=== PATIENT | female | born 1960 | race Caucasian/White ===

== ENCOUNTER 2017-03-17 11:12 | Outpatient (CLI) | payer BC ==
[2017-03-17 13:43] LABS: #Basophils 0.1 thou/uL (0.0-0.2); #Eosinphils 0.2 thou/uL (0.0-0.7); #Lymphocytes 3.2 thou/uL (1.20-3.40); #Monocytes 0.5 thou/uL (0.11-0.59); #Neutrophils 4.8 thou/uL (1.40-6.50); %Basophils 0.6 % (0.0-1.0); %Eosinophils 2.1 % (0.0-10.0); %Lymphocytes 37.1 % (21.0-51.0); %Monocytes 5.5 % (0.0-10.0); Hematocrit 43.2 % (36.0-47.0); Mean Platelet Volume 8.5 fL (7.4-10.4); Red Blood Cell (RBC) Count 4.65 mill/uL (4.20-5.40); White Blood Cell (WBC) Count 8.7 thou/uL (4.8-10.8)
[2017-03-17 14:14] LABS: Anion Gap 13 mmol/L (10-20); BUN (Urea Nitrogen) 11 mg/dL (9.8-20.1); Calc. Creatinine Clearance 0 mL/min (70-130); Calcium 9.8 mg/dL (7.8-10.44); Carbon Dioxide 26 mmol/L (22-29); Chloride 103 mmol/L (98-107); Estimated GFR-MDRD 75
--- NOTE | 2017-04-02 13:27 | EKG ---
Test Reason : Blood Pressure : / mmHG Vent. Rate : 083 BPM Atrial Rate : 083 BPM P-R Int : 160 ms QRS Dur : 086 ms QT Int : 360 ms P-R-T Axes : 059 048 056 degrees QTc Int : 423 ms Normal sinus rhythm Normal ECG When compared with ECG of 19-JUN-2015 07:38, No significant change was found Confirmed by NAVNEET CAMPBELL MD ([id number]) on 04/02/2017 1:26:33 PM Referred By: SARAHY Confirmed By:NAVNEET CAMPBELL MD
== END 2017-03-17 11:13 | disposition home or self-care (01) ==
LOC: LABBT 11:12
PROVIDERS: ATTEND Orthopaedic Surgery
DX: Z01.818 Encounter for other preprocedural examination (principal); S83.242A Other tear of medial meniscus, current injury, left knee, initial encounter
CPT/HCPCS: 80048; 85025; 93005; 93010

== ENCOUNTER 2017-03-31 06:01 | Day surgery (SDC) | payer BC ==
[2017-03-17 11:31] VITALS: BMI 34.4
[2017-03-31] MEDS ORDERED: CEFAZOLIN/Water 2 GM/20 ML SYRINGE ONE (06:23)
[2017-03-31] MEDS ORDERED: PROPOFOL 20 ML ONE (06:39)
[2017-03-31] MEDS ORDERED: Fentanyl 100 MCG/2 ML VIAL ONE (07:08)
--- NOTE | 2017-03-31 11:15 | OP ---
DATE OF SERVICE: 03/31/2017 PREOPERATIVE DIAGNOSIS: Medial meniscus tear, left knee. POSTOPERATIVE DIAGNOSIS: Medial meniscus tear, left knee. 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 DESCRIPTION OF PROCEDURE: Scope was placed in the lateral portal and probe was placed in medial port al, the meniscus was debrided using basket forceps and smoothed using a 4-0 full radius resector. I probed the rim of the meniscus, confirmed it was stable. The knee was irrigated, removed any loose p ieces from the meniscectomy and sterile dressings applied. There were no complications.
[2017-03-31] MEDS ORDERED: PROPOFOL 200 MG/20 ML VIAL ONE (13:40)
== END 2017-03-31 10:00 | disposition home or self-care (01) ==
LOC: SDC 06:01
PROVIDERS: ATTEND Orthopaedic Surgery
PROC: 0SBD4ZZ Excision of Left Knee Joint, Percutaneous Endoscopic Approach (ICD-10-PCS; principal; 2017-03-31)
DX: S83.232A Complex tear of medial meniscus, current injury, left knee, initial encounter (principal); G47.30 Sleep apnea, unspecified; K21.9 Gastro-esophageal reflux disease without esophagitis; J32.9 Chronic sinusitis, unspecified; Z79.899 Other long term (current) drug therapy; Z88.5 Allergy status to narcotic agent; Z98.890 Other specified postprocedural states
CPT/HCPCS: G8978-GP-CI; G8979-GP-CI; G8980-GP-CI; J2704; J3010

== ENCOUNTER 2017-11-17 15:30 | Outpatient (CLI) | payer BC ==
--- NOTE | 2017-11-18 08:38 | MRI ---
MRI RIGHT KNEE WITHOUT CONTRAST: HISTORY: M23.91, internal derangement of right knee. COMPARISON: None. FINDINGS: Medial Meniscus: There is a high-grade radial ear of the posterior horn medial meniscus extending from the free edge t o the intermediate and red zone with a few peripheral fibers remaining. No significant gutter extrus ion. Mild degenerative signal within the posterior horn. Lateral Meniscus: There is radial tear with loss of volume of the lateral meniscal body free edge extending into the me dial 1/3 of the meniscal tissue. Intermediate and red zone are maintained. The ACL and PCL are intact. MCL and LCL are intact. Extensor Mechanism: Quadriceps tendon, patella, and patellar tendon are all intact. There is a dorsal defect of the patella on the lateral trochlea with overlying cartilage loss and sub chondral reactive marrow changes. Cartilage, Patellofemoral Compartment: At the dorsal defect of the patella lateral trochlea, there is a full-thickness cartilage fissuring a nd fraying. The remainder of the patellar cartilage is intact. There is high-grade chondral loss of the central trochlea with early subchondral reactive marrow edema and articular surface remodeling. Medial Compartment: There is some low-grade cartilage fraying on the posterior flexion zone. Lateral Compartment: Intact. Muscles: Muscle signal and bulk is normal. Some low-grade fatty atrophy of the semimembranosus muscle near th e myotendinous junction. Soft Tissues: Low-grade popliteal cysts. There is a small body within the semimembranosus bursa. IMPRESSION: 1. High-grade radial tear of the posterior horn medial meniscus from the free edge to the white and intermediate zone with a few peripheral red zone fibers remaining. No significant gutter extrusion. 2. Free edge tear of the lateral meniscal body with associated degenerative signal within the body o f the lateral meniscus. The free edge fraying and tear extends into the white zone and intermediate zones sparing the peripheral 1/3. 3. Dorsal defect of lateral patella with overlying complete cartilage loss. This dorsal defect maribeth ures 8 mm x 1.4 cm. 4. Small semimembranosus bursa effusion containing a 4 mm body. POS: [facility]
== END 2017-11-17 15:31 | disposition home or self-care (01) ==
LOC: MRI 15:30
PROVIDERS: ATTEND Orthopaedic Surgery
DX: M23.91 Unspecified internal derangement of right knee (principal); S83.241A Other tear of medial meniscus, current injury, right knee, initial encounter; S83.281A Other tear of lateral meniscus, current injury, right knee, initial encounter; M25.461 Effusion, right knee

== ENCOUNTER 2018-07-25 09:08 | Outpatient (CLI) | payer BC ==
--- NOTE | 2018-07-25 09:41 | RAD ---
Exam: Lumbar spine 4 views HISTORY: Lumbar radiculopathy, x6 months. COMPARISON: None FINDINGS: AP, lateral neutral, lateral flexion and lateral extension views were performed with the patient bear ing weight Mild rightward curvature lumbar spine. Lumbar spine vertebral body height is maintained. No fracture. No spondylolisthesis in the neutral position. No abnormal motion upon flexion or extension. There is multilevel degenerative change with loss of disc space height and osteophyte formation. Over all, there is mild degenerative change. IMPRESSION: 1. Mild rightward curvature lumbar spine. 2. Multilevel mild degenerative disc disease. 3. No spondylolisthesis or spondylolysis.
== END 2018-07-25 09:09 | disposition home or self-care (01) ==
LOC: BICRAD 09:08
PROVIDERS: ATTEND Neurological Surgery
DX: M51.16 Intervertebral disc disorders with radiculopathy, lumbar region (principal); M43.8X6 Other specified deforming dorsopathies, lumbar region
CPT/HCPCS: 72110

== ENCOUNTER 2018-08-29 10:11 | Day surgery (SDC) | payer BC ==
[2018-08-29] MEDS ORDERED: ePHEDrine 50 MG/ML VIAL ONE (11:44)
[2018-08-29] MEDS ORDERED: PROPOFOL 200 MG/20 ML VIAL ONE (11:44)
--- NOTE | 2018-08-29 13:05 | MRI ---
MRI cervical spine. HISTORY: Burning and aching both legs. Multiplanar multisequence noncontrast enhanced MRI images cervical spine obtained. 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 The spinal cord is unremarkable. C2-3: Unremarkable C3-4: Moderate right C3-4 neural foraminal narrowing seen due to uncovertebral osteophyte hypertrophy . The left neural foramen is patent. C4-5: There is a small central disc protrusion C5-6: Broad-based central disc protrusion is seen. Central canal and neural foramen are patent. C6-7: Disc desiccation seen. There is a left paracentral C6-7 disc protrusion compressing the thecal sac. The neural foramen are patent. C7-T1: Unremarkable IMPRESSION: broad-based central disc protrusions at multiple mid and lower cervical levels. Transcribed Date/Time: 08/29/2018 1:10 PM
== END 2018-08-29 13:40 | disposition home or self-care (01) ==
LOC: SDC/OP 10:11
PROVIDERS: ATTEND Neurological Surgery
DX: M50.221 Other cervical disc displacement at C4-C5 level (principal); Z88.5 Allergy status to narcotic agent; Z79.899 Other long term (current) drug therapy
CPT/HCPCS: 72141; J2704; J3490

== ENCOUNTER 2018-08-30 12:50 | Outpatient (CLI) | payer BC ==
--- NOTE | 2018-08-30 15:32 | ULT ---
BLADDER ULTRASOUND: INDICATIONS: Polyuria. FINDINGS: The pre-void bladder volume was 122.4 mL. No intraluminal mass is grossly evident. There are bilate ral ureteral jets seen. IMPRESSION: Normal evaluation. POS: [facility]
== END 2018-08-30 12:51 | disposition home or self-care (01) ==
LOC: BICULT 12:50
PROVIDERS: ATTEND Family Medicine
DX: R35.8 Other polyuria (principal)
CPT/HCPCS: 76856

== ENCOUNTER 2019-03-12 10:23 | Outpatient (CLI) | payer BC ==
[2019-03-12 11:53] LABS: #Eosinphils 0.2 thou/uL (0.0-0.7); #Lymphocytes 2.5 thou/uL (1.20-3.40); #Monocytes 0.6 thou/uL (0.11-0.59); #Neutrophils 5.1 thou/uL (1.40-6.50); %Eosinophils 1.8 % (0.0-10.0); %Lymphocytes 29.7 % (21.0-51.0); %Monocytes 6.6 % (0.0-10.0); %Neutrophils 61.8 % (42.0-75.0); Hemoglobin 14.6 g/dL (12.0-16.0); Mean Corpuscular HGB CONC 33.9 g/dL (32.0-36.0); Mean Corpuscular Volume 91.5 fL (78.0-98.0); Mean Platelet Volume 8.8 fL (7.4-10.4); Platelet Count 200 thou/uL (130-400); RBC Distribution Width 12.3 % (11.5-14.5); Red Blood Cell (RBC) Count 4.71 mill/uL (4.20-5.40); White Blood Cell (WBC) Count 8.3 thou/uL (4.8-10.8)
[2019-03-12 12:12] LABS: Anion Gap 13 mmol/L (10-20); BUN (Urea Nitrogen) 12 mg/dL (9.8-20.1); Calc. Creatinine Clearance 0 mL/min (70-130); Calcium 9.4 mg/dL (7.8-10.44); Carbon Dioxide 26 mmol/L (22-29); Chloride 102 mmol/L (98-107); Estimated GFR-MDRD 76; Glucose 80 mg/dL (70-105); Potassium 4.4 mmol/L (3.5-5.1); Sodium 137 mmol/L (136-145)
== END 2019-03-12 10:24 | disposition home or self-care (01) ==
LOC: LABBT 10:23
PROVIDERS: ATTEND Orthopaedic Surgery
DX: Z01.818 Encounter for other preprocedural examination (principal); S83.242A Other tear of medial meniscus, current injury, left knee, initial encounter; S83.282A Other tear of lateral meniscus, current injury, left knee, initial encounter
CPT/HCPCS: 80048; 85025; 93005; 93010

== ENCOUNTER 2019-03-16 07:02 | Day surgery (SDC) | payer BC ==
[2019-03-12 10:50] VITALS: BMI 35.2
[2019-03-16] MEDS ORDERED: PROPOFOL 20 ML ONE ×2 (08:30→10:30)
[2019-03-16] MEDS ORDERED: Fentanyl 100 MCG/2 ML VIAL ONE (09:52)
[2019-03-16] MEDS ORDERED: Ondansetron PF 4 MG/2 ML Vial ONE (10:27)
[2019-03-16] MEDS ORDERED: Bupivacaine HCl 0.5%/Epinephrine 1:200,000/PF 30 ml Vial ONE (12:43)
[2019-03-16] MEDS ORDERED: Dexamethasone 20 MG/5 ML VIAL ONE (12:43)
[2019-03-16] MEDS ORDERED: Lidocaine 2% w/Epinephrine 1:200K 20 ML VIAL ONE (12:43)
--- NOTE | 2019-03-16 12:51 | OP ---
DATE OF PROCEDURE: 03/16/2019 PREOPERATIVE DIAGNOSIS: Medial and lateral meniscus tear, left knee. POSTOPERATIVE DIAGNOSIS: Medial and lateral meniscus tear, left knee. PROCEDURE PERFORMED: Arthroscopic partial medial and lateral meniscectomy. ANESTHESIA: General. BLOOD LOSS: Minimal. SPECIMEN: None. DRAIN: None. COMPLICATION: None. DESCRIPTION OF PROCEDURE: The patient was taken to the operating room and general anesthesia was induced. Left leg was prepped and draped in sterile fashion. Scope was placed through the lateral portal. Probe was placed in the medial portal. She had surprisingly little arthritis in the knee and no exposed bony compartment. Her ACL appeared to be chronically partially torn. A small tear of the posterior medial meniscus was debrided using basket forceps and 4.0 full-radius resector. The majority of the posterior medial meniscus was torn. This was removed with basket forceps and smoothed using a resector as well. The knee was irrigated. I probed the remaining meniscus and found it to be stable. The knee was drained. Sterile dressings were applied. Job ID: [id number]
== END 2019-03-16 13:12 | disposition home or self-care (01) ==
LOC: SDC 07:02
PROVIDERS: ATTEND Orthopaedic Surgery
PROC: 0SBD4ZZ Excision of Left Knee Joint, Percutaneous Endoscopic Approach (ICD-10-PCS; principal; 2019-03-16)
DX: S83.242A Other tear of medial meniscus, current injury, left knee, initial encounter (principal); S83.512A Sprain of anterior cruciate ligament of left knee, initial encounter; M17.12 Unilateral primary osteoarthritis, left knee; G47.30 Sleep apnea, unspecified; K21.9 Gastro-esophageal reflux disease without esophagitis; F17.210 Nicotine dependence, cigarettes, uncomplicated; Z79.899 Other long term (current) drug therapy; Z88.5 Allergy status to narcotic agent; Z98.890 Other specified postprocedural states
CPT/HCPCS: J0670; J0690; J1100; J2405; J2704; J3010

== ENCOUNTER 2019-04-03 10:32 | Day surgery (SDC) | payer BC ==
[2019-03-29 09:28] VITALS: BMI 35.2
[2019-04-03] MEDS ORDERED: Ondansetron PF 4 MG/2 ML Vial ONE (10:39)
[2019-04-03] MEDS ORDERED: PROPOFOL 200 MG/20 ML VIAL ONE (10:39)
[2019-04-03] MEDS ORDERED: Lidocaine 1% PF 5 ML VIAL ONE (10:39)
[2019-04-03] MEDS ORDERED: Bupivacaine HCl 0.5%/Epinephrine 1:200,000/PF 30 ml Vial ONE (10:43)
[2019-04-03] MEDS ORDERED: Lidocaine 2% w/Epinephrine 1:200K 20 ML VIAL ONE (10:43)
[2019-04-03] MEDS ORDERED: PROPOFOL 20 ML ONE (12:05)
[2019-04-03] MEDS ORDERED: Fentanyl 100 MCG/2 ML VIAL ONE (13:36)
[2019-04-03] MEDS ORDERED: HYDROcodone/Acetaminophen 5/325 mg Tablet ONE (15:15)
--- NOTE | 2019-04-03 15:32 | OP ---
DATE OF PROCEDURE: 04/03/2019 TITLE OF PROCEDURE: Right knee arthroscopic partial medial and lateral meniscectomy. ANESTHESIA: General. BLOOD LOSS: Minimal. SPECIMENS: None. DRAINS: None. COMPLICATION: None. FINDINGS AT SURGERY: Medial meniscus tear, lateral meniscus tear, ACL intact. Cartilage in all three compartments. DESCRIPTION OF PROCEDURE: The scope was placed in the lateral portal, probe was placed in the medial portal. The medial meniscus was then probed, found to have a tear. This was debrided using basket forceps, smoothed using a full-radius resector all the way around the probing, confirmed the meniscus stable. Notch was examined. ACL was intact. Lateral compartment was examined. There was found to be a tear in the central portion of the lateral meniscus. This was debrided using basket forceps, smoothed using a 4-0 full-radius resector. The gutters were swept. Suprapatellar pouch was examined for loose bodies, there were none. The knee was irrigated and drained. Sterile dressings applied. Job ID: [id number]
== END 2019-04-03 15:45 | disposition home or self-care (01) ==
LOC: SDC 10:32
PROVIDERS: ATTEND Orthopaedic Surgery
PROC: 0SBC4ZZ Excision of Right Knee Joint, Percutaneous Endoscopic Approach (ICD-10-PCS; principal; 2019-04-03)
DX: S83.241A Other tear of medial meniscus, current injury, right knee, initial encounter (principal); S83.281A Other tear of lateral meniscus, current injury, right knee, initial encounter; F17.210 Nicotine dependence, cigarettes, uncomplicated; Z88.5 Allergy status to narcotic agent
CPT/HCPCS: J0690; J2704; J3010

== ENCOUNTER 2020-04-28 11:01 | Outpatient (CLI) | payer BC ==
[2020-04-28 22:24] LABS: SARS-CoV-2 PCR by NAA Not Detected (NotDetected)
== END 2020-04-28 11:02 | disposition home or self-care (01) ==
LOC: LABBT 11:01
PROVIDERS: ATTEND Family Medicine
DX: Z01.812 Encounter for preprocedural laboratory examination (principal); Z20.822 Contact with and (suspected) exposure to COVID-19
CPT/HCPCS: 87635; U0003; U0005

== ENCOUNTER 2020-05-02 10:00 | Day surgery (SDC) | payer BC ==
[2020-05-01 09:29] VITALS: BMI 37.3
[~2020-05-02 10:00] MED LIST: Dexamethasone 20 MG/5 ML VIAL ONE; Ondansetron PF 4 MG/2 ML Vial ONE; PROPOFOL 200 MG/20 ML VIAL ONE
[2020-05-02] MEDS ORDERED: Fentanyl 100 MCG/2 ML VIAL ONE (11:38)
[2020-05-02] MEDS ORDERED: Midazolam HCl 2 mg/2 ml Vial ONE (11:38)
== END 2020-05-02 14:18 | disposition home or self-care (01) ==
LOC: SDC/OP 10:00
PROVIDERS: ATTEND Family Medicine
DX: M48.062 Spinal stenosis, lumbar region with neurogenic claudication (principal); M51.26 Other intervertebral disc displacement, lumbar region; F17.210 Nicotine dependence, cigarettes, uncomplicated; K21.9 Gastro-esophageal reflux disease without esophagitis; G47.30 Sleep apnea, unspecified; Z79.899 Other long term (current) drug therapy; Z88.5 Allergy status to narcotic agent
CPT/HCPCS: 72148; J1100; J2250; J2405; J2704; J3010

== ENCOUNTER 2021-04-28 15:15 | Outpatient (CLI) | payer BC, MEDICARE | END 2021-04-28 15:16 | disposition home or self-care (01) | LOC: BICCT 15:15 | PROVIDERS: ATTEND Family Medicine | DX: Z12.2 Encounter for screening for malignant neoplasm of respiratory organs (principal); F17.210 Nicotine dependence, cigarettes, uncomplicated | CPT/HCPCS: 71271 ==

== ENCOUNTER 2022-02-12 13:08 | Outpatient (CLI) | payer BC, MEDICARE | END 2022-02-12 13:09 | disposition home or self-care (01) | LOC: BICMAMMO 13:08 | PROVIDERS: ATTEND Obstetrics & Gynecology | DX: Z12.31 Encounter for screening mammogram for malignant neoplasm of breast (principal); Z98.890 Other specified postprocedural states | CPT/HCPCS: 77063; 77067 ==

== ENCOUNTER 2023-03-07 12:16 | Outpatient (CLI) | payer MEDICARE | END 2023-03-07 12:17 | disposition home or self-care (01) | LOC: BICMAMMO 12:16 | PROVIDERS: ATTEND Obstetrics & Gynecology | DX: Z12.31 Encounter for screening mammogram for malignant neoplasm of breast (principal); Z80.3 Family history of malignant neoplasm of breast; Z91.89 Other specified personal risk factors, not elsewhere classified; Z00.00 Encounter for general adult medical examination without abnormal findings; E78.2 Mixed hyperlipidemia; E55.9 Vitamin D deficiency, unspecified; Z79.899 Other long term (current) drug therapy | CPT/HCPCS: 36415; 77063; 77067; 80053; 80061; 81001; 82306; 83036; 84443; 85025 ==